=== PATIENT | male | born 1995 ===

== ENCOUNTER 2017-08-12 16:58 | Inpatient (IN) | payer OTHER ==
[~2017-08-12] VITALS: Ht 182.9 cm; Wt 98.3 kg
[2017-08-12] MEDS ORDERED: ALBUT/IPRATROP 3MG/0.5MG NEB 3 ML VIAL INH STA (17:29)
[2017-08-12] MEDS ORDERED: ACETAMINOPHEN 500 MG TAB PO STA (17:29)
[2017-08-12] MEDS ORDERED: KETOROLAC TROMETHAMINE 30 MG/ML VIAL IV STA (17:29)
[2017-08-12] MEDS ORDERED: SODIUM CHLORIDE 0.9% 1000ML 1,000 ML IV STA (17:29)
[2017-08-12] MEDS ORDERED: PIPERACILLIN/TAZOBACTAM 4.5 GM/100ML D5W IV STA (17:35)
[2017-08-12] MEDS ORDERED: VANCOMYCIN INJ 2,000 MG in SODIUM CHLORIDE 0.9% 500ML 500 ML IV STA (17:37)
[2017-08-12] MEDS ORDERED: OPTIRAY 320 IV PRN (17:45)
--- NOTE | 2017-08-12 18:04 | EMERGENCY ROOM VISIT NOTE ---
History Report prepared by Domingo: Alphonse Madison Under the Supervision of: Dr. Satya Da Silva D.O. First contact with patient: 17:25 Chief Complaint: RESPIRATORY PROBLEMS Stated Complaint: BREATHING PAIN History of Present Illness The patient is a 22 year old male who presents to the Emergency Room with complaints of constant dyspnea that started yesterday. He rates his pain as a 5/ 10 in severity. The patient reports that his symptoms are worsened with laying down, breathing, and coughing. He admits that he has been ill for two weeks and has been coughing and experiencing abdominal pain. The patient states that he woke up yesterday with pain radiating from his chest to his shoulder and back. He reports that he waited a day and made an appointment with a doctor. The patient states that the doctor told him that it may be pneumonia or a blood clot and told him to report to the ED. He admits to a history of a kidney stone that occurred a year ago. 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 He admits that he is not originally from the [facility] and is from [place]. The patient states that his last visit to [place] was last summer. He denies any fevers, nausea, vomiting, swelling or pain in his legs, sick contact, night sweats, coughing up blood, a history of a blood clot, taking medication, tobacco use, and medication allergies. Source of History: patient Onset: yesterday Position: other (global) Symptom Intensity: 5/10 Quality: other (global) Timing: constant Modifying Factors (Worsening): breathing, other (coughing, laying down) Associated Symptoms: + cough, + abdominal pain, No fevers, No chills, No nausea, No vomiting Review of Systems See HPI for pertinent positives & negatives. A total of 10 systems reviewed and were otherwise negative. Past Medical & Surgical Medical Problems: (1) Left pleuritic pain Family History Patient reports no known family medical history. Social History Smoking Status: Never Smoker Alcohol Use: occasionally Housing Status: lives with roommate Occupation Status: [employer] student Current/Historical Medications No Active Prescriptions or Reported Meds Allergies Coded Allergies: No Known Allergies (Unverified , 08/12/17) Physical Exam Vital Signs Date Time Temp Pulse Resp B/P (MAP) Pulse Ox O2 Delivery O2 Flow Rate FiO2 08/12/17 18:30 109 25 128/74 99 Room Air 08/12/17 18:30 99 Room Air 08/12/17 18:30 99 Room Air 08/12/17 18:30 99 Room Air 08/12/17 17:04 37.6 91 18 126/78 97 Room Air Physical Exam GENERAL: Patient is awake, alert, and in no acute distress. Patient is resting comfortably and showing no signs of anxiety EYES: The conjunctivae are clear. The pupils are round and reactive. EARS, NOSE, MOUTH AND THROAT: The nose is without any evidence of any deformity. Mucous membranes are moist tongue is midline NECK: The neck is nontender and supple. RESPIRATORY: Splinting respiration noted. Diminished breath sounds at left hemithorax and absent breath sounds at base. Rales in the upper left lung field. Mild tachypnea noted but no dyspnea with conversation. CARDIOVASCULAR: Tachycardic with a murmur noted. No deficits noted. GASTROINTESTINAL: Tenderness in right upper quadrant. No guarding or rigidity. PELVIS: The Pelvis is stable. No tenderness to palpation is noted. BACK: No midline tenderness or or step-off noted range of motion in flexion extension as well as rotation no signs of muscle spasm noted MUSCULOSKELETAL/EXTREMITIES: There is no evidence of gross deformity full range of motion is noted in the hips and shoulders SKIN: There is no obvious evidence of any rash. There are no petechiae, pallor or cyanosis noted. NEUROLOGIC: Patient is awake alert and oriented x3 strength is symmetric patellar reflexes are 2+ bilaterally Medical Decision & Procedures ER Provider Diagnostic Interpretation: X-ray results as stated below per interpretation by me and the radiologist. CT ANGIOGRAPHY OF THE CHEST, PULMONARY EMBOLUS PROTOCOL CLINICAL HISTORY: Respiratory distress. COMPARISON STUDY: No previous studies for comparison. TECHNIQUE: Following IV administration of 97 mL of Optiray-320, helical axial images of the chest were obtained utilizing the pulmonary embolus protocol. Maximal intensity projections and sagittal and coronal reformats were viewed on an independent 3D workstation. IV contrast was administered without complication. A dose lowering technique was utilized adhering to the principles of ALARA. CT DOSE: 496.35 mGy.cm FINDINGS: No central or lobar pulmonary emboli are identified. The segmental and subsegmental pulmonary arteries are suboptimally assessed due to respiratory motion. There is no pneumothorax. There is a small left pleural effusion. Multifocal consolidation within the left lung is noted, including a 4.6 x 3.6 cm focus of consolidation within the left lower lobe. There is possible early cavitation within this area of consolidation. Minimal airspace opacity within the right lower and right middle lobes is noted. Central airways are patent. Bony thorax and upper abdomen are unremarkable. Size the heart is normal. There is no thoracic aortic dissection. No enlarged thoracic lymph nodes are present. IMPRESSION: 1. No central or lobar pulmonary emboli identified. Segmental and subsegmental pulmonary arteries suboptimally assessed due to respiratory motion. 2. Multifocal airspace opacities within the bilateral lower lobes, lingula and right middle lobe, including a 4.6 x 3.6 cm focus of consolidation within the left lower lobe with possible early cavitation. The findings suggest multifocal pneumonia. Tuberculosis or a vasculitis are considered unlikely but would be difficult to exclude based on this study. 3. Small left pleural effusion. Electronically signed by: Momo Kaur M.D. 08/12/2017 7:59 PM Dictated Date/Time: 08/12/2017 7:44 PM Laboratory Results 08/12/17 18:00 Red Blood Count 5.25, Mean Corpuscular Volume 81.3, Mean Corpuscular Hemoglobin 27.2, Mean Corpuscular Hemoglobin Concent 33.5, Mean Platelet Volume 9.1, Neutrophils (%) (Auto) 74.2, Lymphocytes (%) (Auto) 18.0, Monocytes (%) (Auto) 6.8, Eosinophils (%) (Auto) 0.4, Basophils (%) (Auto) 0.1, Neutrophils # (Auto) 9.40, Lymphocytes # (Auto) 2.28, Monocytes # (Auto) 0.86, Eosinophils # (Auto) 0.05, Basophils # (Auto) 0.01 08/12/17 18:00 Test 08/12/17 18:00 08/12/17 18:09 08/12/17 18:14 08/12/17 18:16 White Blood Count 12.66 K/uL (4.8-10.8) Red Blood Count 5.25 M/uL (4.7-6.1) Hemoglobin 14.3 g/dL (14.0-18.0) Hematocrit 42.7 % (42-52) Mean Corpuscular Volume 81.3 fL (80-100) Mean Corpuscular Hemoglobin 27.2 pg (25-34) Mean Corpuscular Hemoglobin Concent 33.5 g/dl (32-36) Platelet Count 365 K/uL (130-400) Mean Platelet Volume 9.1 fL (7.4-10.4) Neutrophils (%) (Auto) 74.2 % Lymphocytes (%) (Auto) 18.0 % Monocytes (%) (Auto) 6.8 % Eosinophils (%) (Auto) 0.4 % Basophils (%) (Auto) 0.1 % Neutrophils # (Auto) 9.40 K/uL (1.4-6.5) Lymphocytes # (Auto) 2.28 K/uL (1.2-3.4) Monocytes # (Auto) 0.86 K/uL (0.11-0.59) Eosinophils # (Auto) 0.05 K/uL (0-0.5) Basophils # (Auto) 0.01 K/uL (0-0.2) RDW Standard Deviation 39.6 fL (36.4-46.3) RDW Coefficient of Variation 13.3 % (11.5-14.5) Immature Granulocyte % (Auto) 0.5 % Immature Granulocyte # (Auto) 0.06 K/uL (0.00-0.02) Erythrocyte Sedimentation Rate 76 mm/hr (0-14) Prothrombin Time 11.0 SECONDS (9.0-12.0) Prothromb Time International Ratio 1.0 (0.9-1.1) Activated Partial Thromboplast Time 29.8 SECONDS (21.0-31.0) Partial Thromboplastin Ratio 1.1 Est Creatinine Clear Calc Drug Dose 156.0 ml/min Estimated GFR () 139.1 Estimated GFR (Non- 120.0 BUN/Creatinine Ratio 12.6 (10-20) Calcium Level 9.9 mg/dl (8.5-10.1) Total Bilirubin 0.5 mg/dl (0.2-1) Aspartate Amino Transf (AST/SGOT) 16 U/L (15-37) Alanine Aminotransferase (ALT/SGPT) 36 U/L (12-78) Alkaline Phosphatase 92 U/L (45-117) Troponin I < 0.015 ng/ml (0-0.045) C-Reactive Protein 10.20 mg/dl (0-0.29) Total Protein 9.1 gm/dl (6.4-8.2) Albumin 3.7 gm/dl (3.4-5.0) Globulin 5.4 gm/dl (2.5-4.0) Albumin/Globulin Ratio 0.7 (0.9-2) Bedside Hemoglobin 15.6 g/dl (14.0-18.0) Bedside Hematocrit 46 % (42-52) Bedside Sodium 138 mEq/L (135-144) Bedside Potassium 4.0 mEq/L (3.3-5.0) Bedside Chloride 98 mEq/L (101-112) Bedside Total CO2 28 mEq/l (24-31) Anion Gap 17.0 mmol/L (16-25) Bedside Blood Urea Nitrogen 12 mg/dl (7-18) Bedside Creatinine 0.9 mg/dl (0.6-1.3) Bedside Glucose (other) 94 mg/dl (70-99) Bedside Ionized Calcium (Mariam) 1.23 mmol/l (1.12-1.32) Bedside Lactic Acid Venous 0.76 mmol/L (0.90-1.70) Laboratory results per my review. Medications Administered Medications (Trade) Dose Ordered Sig/Concepcion Route Start Time Stop Time Status Last Admin Dose Admin Acetaminophen (Tylenol Tab) 1,000 mg NOW STAT PO 08/12/17 17:29 08/12/17 17:31 DC 08/12/17 18:41 1,000 MG Sodium Chloride 1,000 ml @ 999 mls/hr Q1H1M STAT IV 08/12/17 17:29 08/12/17 18:29 DC 08/12/17 18:43 999 MLS/HR Ketorolac Tromethamine (Toradol Inj) 30 mg NOW STAT IV 08/12/17 17:29 08/12/17 17:31 DC 08/12/17 18:41 30 MG Albuterol/ Ipratropium (Duoneb) 3 ml NOW STAT INH 08/12/17 17:29 08/12/17 17:31 DC 08/12/17 17:29 3 ML Piperacillin Sod/ Tazobactam Sod (Zosyn Iv) 4.5 gm NOW STAT IV 08/12/17 17:35 08/12/17 17:36 DC 08/12/17 18:43 4.5 GM Vancomycin HCl 2000 mg/Sodium Chloride 540 ml @ 200 mls/hr ONE STAT IV 08/12/17 17:37 08/12/17 20:18 DC 08/12/17 18:43 200 MLS/HR ECG Indication: chest pain Rate (beats per minute): 95 Rhythm: normal sinus Findings: no ectopy, other (No acute ST segments) Comparison ECG Date: no prior available ED Course 1725: The patient was evaluated in room A02. A complete history and physical examination were performed. 1729: Ordered Duoneb 3 ml INH, Toradol Injection 30 mg IV, Sodium Chloride 1000 ml @ 999 mls/hr IV, Tylenol Tab 1000 mg PO. 1735: Ordered Zosyn 4.5 gm IV. 1737: Ordered Vancomycin HCl 2000 mg/ Sodium Chloride 540 ml @ 200 mls/hr IV. 1748: I discussed the patients case with Dr. Szymanski, [facility] Hospitalist. He understands the patients condition and agrees to accept the patient. Medical Decision Prior records/ancillary studies reviewed. Triage Nursing notes reviewed. Additional history obtained from the patient. The patient's history was concerning for respiratory difficulties. Differential diagnosis: Etiologies such as infections, reactive airway disease, pneumonia, pneumothorax , COPD, CHF, cardiac ischemia, pulmonary embolism, musculoskeletal, gastrointestinal, as well as others were entertained. 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 The patient was seen at [facility] prior to coming to the emergency department and he was sent to the emergency department because of an abnormal chest x-ray and an elevated d- dimer. The patient was found have very abnormal chest x-ray and was placed in respiratory isolation prior to any further studies after my initial evaluation. The patient did not have hemoptysis or weight loss and had no exposure to tuberculosis that he could remember however he was found have a cavitary lesion on chest x-ray and this was confirmed on CT of the chest. Initially he was treated with Zosyn and vancomycin. I discussed the patient's laboratory and radiographic studies with him. I also [facility] They've agreed to evaluate the patient in the emergency department for further management and disposition. The patient was also treated with IV fluids. He was reevaluated multiple times. Medication Reconcilliation Current Medication List: was personally reviewed by me Blood Pressure Screening Patient's blood pressure: Elevated blood pressure Blood pressure disposition: Elevated BP felt to be situational Consults Time Called: 174 Consulting Physician: Dr. Szymanski [facility] Hospitalist Returned Call: [phone] I discussed the patients case with Dr. Szymanski [facility] Hospitalist. He understands the patients condition and agress to accept the patient. Impression Primary Impression: Cavitary pneumonia Additional Impression: Chest pain Scribe Attestation The scribe's documentation has been prepared under my direction and personally reviewed by me in its entirety. I confirm that the note above accurately reflects all work, treatment, procedures, and medical decision making performed by me. Departure Information Dispostion Being Evaluated By Hospitalist Prescriptions No Active Prescriptions or Reported Meds Referrals No Doctor, Assigned (PCP) Patient Instructions My [facility] Problem Qualifiers Additional Impression: Chest pain Chest pain type: unspecified Qualified Codes: R07.9 - Chest pain, unspecified
[2017-08-12 18:21] LABS: BASO % 0.1 %; BASO ABS # 0.01 K/uL (0-0.2); COMPLETE YES; EOS % 0.4 %; HEMATOCRIT 42.7 % (42-52); IG% 0.5 %; LYMPH ABS # 2.28 K/uL (1.2-3.4); MEAN CELL VOLUME 81.3 fL (80-100); MEAN CORPUSCULAR HEMOGLOBIN 27.2 pg (25-34); MEAN CORPUSCULAR HGB CONC 33.5 g/dl (32-36); MEAN PLATELET VOLUME 9.1 fL (7.4-10.4); MONO % 6.8 %; NEUT % 74.2 %; PLATELET COUNT 365 K/uL (130-400); RED BLOOD COUNT 5.25 M/uL (4.7-6.1); WHITE BLOOD COUNT 12.66 K/uL (4.8-10.8)
[2017-08-12 18:27] LABS: ISTAT CREATININE 0.9 mg/dl (0.6-1.3); ISTAT HEMOGLOBIN 15.6 g/dl (14.0-18.0); ISTAT IONIZED CALCIUM 1.23 mmol/l (1.12-1.32)
[2017-08-12] MEDS ORDERED: ONDANSETRON INJ 2 MG/ML 2 ML VIAL IV PRN (18:30)
[2017-08-12] MEDS ORDERED: ACETAMINOPHEN 325 MG TAB PO PRN (18:30)
[2017-08-12] MEDS ORDERED: POLYETHYLENE (MIRALAX) 17 GM PACK PO PRN (18:30)
[2017-08-12 18:32] LABS: PARTIAL THROMBOPLASTIN RATIO 1.1
--- NOTE | 2017-08-12 18:34 | History and Physical ---
History & Physical Date & Time of Service: Aug 12, 2017 at 18:19 Chief Complaint: Breathing Pain Primary Care Physician: Services,[facility] History of Present Illness Source: patient This is a 22 yo M with limited with PMHx including asthma as a child, hx of nasal polypectomy at very young age, and previous kidney stone. 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 The patient presents with pleuritic pain on the left side x 1 day. Pt awoke yesterday morning with acute left sided pleuritic pain, specifically worse with deep breaths and an occasional cough. He waited 1 day to see a doctor at [facility], but was then told to go to the ER. He denies fever, chills or sweats. Pt admits to feeling short of breath if he is required to talk for an extended period of time. He is winded more easily with walking long distances compared to normal. Pt denies chest palpitations, flutter, headache. He reports having an upper respiratory infection for 3-4 days last week with nasal congestion, sinus drainage and cough but this had resolved around Wednesday. He resides with 3 room mates but does not share bedroom with any.He denies any exposure to sick contacts or known tuberculosis but presents with respiratory distress. He denies environmental exposure to fumes or smoke. Pt notes he typically drinks vodka once a week in single shot form. He denies smoking of any kind or illicit drug use. ESR is elevated at [address] chest in process A quantiferon gold test is in process Past Medical/Surgical History Childhood asthma Surgical Hx: Nasal polypectomy Family History Mother: no known medical hx Father: no known medical hx Social History Smoking Status: Never Smoker Occupational Status: [employer] Multi-Drug Resistant Organisms History of MDRO: No Allergies Coded Allergies: No Known Allergies (Unverified , 08/12/17) Home Medications No Active Prescriptions or Reported Meds Review of Systems Constitutional: + fatigue, No fever, No chills, No sweats Eyes: No redness, No diplopia, No problem reported ENT: No nasal symptoms, No sore throat, No tinnitus Respiratory: + cough, + sputum, + dyspnea on exertion, No wheezing, No hemoptysis Cardiovascular: No chest pain, No edema, No palpitations Abdomen: No pain, No nausea, No vomiting, No diarrhea Musculoskeletal: No joint pain, No swelling, No calf pain Genitourinary - Male: No hematuria, No dysuria Neurologic: No numbness/tingling Psychiatric: No depression symptoms, No anxiety Endocrine: No fatigue Integumentary: No rash, No itch Physical Exam Vital Signs Date Time Temp Pulse Resp B/P (MAP) Pulse Ox O2 Delivery O2 Flow Rate FiO2 08/12/17 17:04 37.6 91 18 126/78 97 Room Air General Appearance: WD/WN, no apparent distress Head: normocephalic, atraumatic Eyes: PERRL, EOMI ENT: hearing grossly normal, pharynx normal Neck: supple, no JVD Respiratory/Chest: + pertinent finding (Diminished breath sounds in BERTO with faint crackles, +absent breath sounds in LLL. Right side with diminished breath sounds but no crackles or wheeze. Pt has difficulty with deep breaths, on room air with adequate saturations.) Cardiovascular: regular rate, rhythm, no murmur, normal peripheral pulses, + tachycardia Abdomen/GI: normal bowel sounds, non tender, soft, + pertinent finding (+ pain with palpation in the LUQ due to referred pressure in chest) Back: no CVA tenderness Extremities/Musculoskelatal: no calf tenderness, no pedal edema Neurologic/Psych: alert, normal reflexes, oriented x 3 Skin: normal color, warm/dry Diagnostics Laboratory Results Results Past 24 Hours Test 08/12/17 17:49 08/12/17 18:00 Range/Units Microbiology Results 08/12/17 Blood Culture, Ordered Pending 08/12/17 Blood Culture, Ordered Pending Impression Assessment and Plan This is a 22 yo M with limited with PMHx including asthma as a child, hx of nasal polypectomy at very young age, and previous kidney stone. 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 The patient presents with pleuritic pain on the left side x 1 day. Pt awoke yesterday morning with acute left sided pleuritic pain, specifically worse with deep breaths and an occasional cough. Left sided pleuritic chest pain - Admitted to tele - CT of the chest ordered- follow - Possible needs for thoracentesis if abscess or empyema - Started on vanc and zosyn in the ER - continue to cover for staph process with recent URI last week and possible pneumonia. - Environmental exposure possible for TB - quantiferon gold in process - maintain negative pressure room with droplet precautions - Analgesia with toradol and tylenol - Low grade temp with Tmax 37.6 - continue tylenol. - Follow blood cultures - Sputum culture DVT ppx: ambulatory, scds, no chemical anticoagulation in case of possible needs for thoracentesis CODE STATUS: FULL CODE Disposition: Discharge possible in 1-2 days. Resident Physician Supervision Note: I was present with the PA during the history and exam. I discussed the PA with the resident and agree with the findings and plan as documented in the note. Any exceptions or clarifications are listed here: 22 y/o M - no significant Hx - URI one week prior Presenting with L pleuritic CP - large abscess seen on CT chest AAO x 3 reduced air on L - no crackles S1,2 R NT, ND NO CCE P: Placed on Zosyn and Vanc as may be post-viral May need drainage or Bx Will place on isolation as TB a remote possibility - cavitation seen in abscess Pt stable at time of admission Documented By: Juanjo Szymanski Level of Care Telemetry Advanced Directives Existing Advance Directive: No Existing Living Will: No Existing Power of Speech And Language Specialist: No Existing Health Care Proxy: No Resuscitation Status FULL RESUSCITATION
[2017-08-12 18:46] LABS: ALT/SGPT 36 U/L (12-78); BLOOD UREA NITROGEN 12 mg/dl (7-18); BUN/CREATININE RATIO 12.6 (10-20); CALCIUM 9.9 mg/dl (8.5-10.1); CARBON DIOXIDE 29 mmol/L (21-32); CHLORIDE 100 mmol/L (98-107); CREATININE 0.91 mg/dl (0.60-1.40); GLUCOSE 91 mg/dl (70-99); POTASSIUM 3.8 mmol/L (3.5-5.1); SODIUM 135 mmol/L (136-145)
[2017-08-12 18:50] LABS: ALB/GLOB RATIO 0.7 (0.9-2); ALKALINE PHOSPHATASE 92 U/L (45-117); AST/SGOT 16 U/L (15-37)
[2017-08-12] MEDS ORDERED: KETOROLAC TROMETHAMINE 30 MG/ML VIAL IV PRN (19:00)
--- NOTE | 2017-08-12 20:00 | DIAGNOSTIC IMAGING REPORT ---
CT ANGIOGRAPHY OF THE CHEST, PULMONARY EMBOLUS PROTOCOL CLINICAL HISTORY: Respiratory distress. COMPARISON STUDY: No previous studies for comparison. TECHNIQUE: Following IV administration of 97 mL of Optiray-320, helical axial images of the chest were obtained utilizing the pulmonary embolus protocol. Maximal intensity projections and sagittal and coronal reformats were viewed on an independent 3D workstation. IV contrast was administered without complication. A dose lowering technique was utilized adhering to the principles of ALARA. CT DOSE: 496.35 mGy.cm FINDINGS: No central or lobar pulmonary emboli are identified. The segmental and subsegmental pulmonary arteries are suboptimally assessed due to respiratory motion. There is no pneumothorax. There is a small left pleural effusion. Multifocal consolidation within the left lung is noted, including a 4.6 x 3.6 cm focus of consolidation within the left lower lobe. There is possible early cavitation within this area of consolidation. Minimal airspace opacity within the right lower and right middle lobes is noted. Central airways are patent. Bony thorax and upper abdomen are unremarkable. Size the heart is normal. There is no thoracic aortic dissection. No enlarged thoracic lymph nodes are present. IMPRESSION: 1. No central or lobar pulmonary emboli identified. Segmental and subsegmental pulmonary arteries suboptimally assessed due to respiratory motion. 2. Multifocal airspace opacities within the bilateral lower lobes, lingula and right middle lobe, including a 4.6 x 3.6 cm focus of consolidation within the left lower lobe with possible early cavitation. The findings suggest multifocal pneumonia. Tuberculosis or a vasculitis are considered unlikely but would be difficult to exclude based on this study. 3. Small left pleural effusion. Electronically signed by: Momo Kaur M.D. 08/12/2017 7:59 PM Dictated Date/Time: 08/12/2017 7:44 PM
[2017-08-12 20:30] VITALS: BP 133/78; PULSE 98; TEMP 36.4; O2SAT 98
[2017-08-12] MEDS ORDERED: VANCOMYCIN CONSULT ACTIVE PRN (20:45)
[2017-08-12] MEDS ORDERED: PIPERACILL/TAZOBAC CONSULT ACTIVE PRN (20:45)
[2017-08-12] MEDS ORDERED: TUBERCULIN SKIN TEST 5 TU in SYRINGE 0 ML ID SCH (21:00)
--- NOTE | 2017-08-12 21:43 | Pharmacy Progress Note ---
Pharmacy Antibiotic Consult Date of Service: Aug 12, 2017. Pharmacy Dosing Scope Pharmacy is consulted to initiate vancomycin and Zosyn IV dosing therapy, order appropriate labs and adjust drug dose/frequency. Subjective The patient is a 22 year old male admitted on Aug 12, 2017 at 18:31. The patient presents with pleuritic pain on the left side x 1 day. Pt awoke yesterday morning with acute left sided pleuritic pain, specifically worse with deep breaths and an occasional cough. 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 CT of chest indicates PNX/chest abscess. Objective Height (Feet): 6 Height (Inches): 0 Weight (Kilograms): 98.30 Lab Results (24hrs): Test 08/12/17 18:00 08/12/17 18:09 08/12/17 18:14 08/12/17 18:16 White Blood Count 12.66 K/uL (4.8-10.8) Red Blood Count 5.25 M/uL (4.7-6.1) Hemoglobin 14.3 g/dL (14.0-18.0) Hematocrit 42.7 % (42-52) Mean Corpuscular Volume 81.3 fL (80-100) Mean Corpuscular Hemoglobin 27.2 pg (25-34) Mean Corpuscular Hemoglobin Concent 33.5 g/dl (32-36) Platelet Count 365 K/uL (130-400) Mean Platelet Volume 9.1 fL (7.4-10.4) Neutrophils (%) (Auto) 74.2 % Lymphocytes (%) (Auto) 18.0 % Monocytes (%) (Auto) 6.8 % Eosinophils (%) (Auto) 0.4 % Basophils (%) (Auto) 0.1 % Neutrophils # (Auto) 9.40 K/uL (1.4-6.5) Lymphocytes # (Auto) 2.28 K/uL (1.2-3.4) Monocytes # (Auto) 0.86 K/uL (0.11-0.59) Eosinophils # (Auto) 0.05 K/uL (0-0.5) Basophils # (Auto) 0.01 K/uL (0-0.2) RDW Standard Deviation 39.6 fL (36.4-46.3) RDW Coefficient of Variation 13.3 % (11.5-14.5) Immature Granulocyte % (Auto) 0.5 % Immature Granulocyte # (Auto) 0.06 K/uL (0.00-0.02) Erythrocyte Sedimentation Rate 76 mm/hr (0-14) Prothrombin Time 11.0 SECONDS (9.0-12.0) Prothromb Time International Ratio 1.0 (0.9-1.1) Activated Partial Thromboplast Time 29.8 SECONDS (21.0-31.0) Partial Thromboplastin Ratio 1.1 Sodium Level 135 mmol/L (136-145) Potassium Level 3.8 mmol/L (3.5-5.1) Chloride Level 100 mmol/L (98-107) Carbon Dioxide Level 29 mmol/L (21-32) Anion Gap 6.0 mmol/L (3-11) 17.0 mmol/L (16-25) Blood Urea Nitrogen 12 mg/dl (7-18) Creatinine 0.91 mg/dl (0.60-1.40) Est Creatinine Clear Calc Drug Dose 156.0 ml/min Estimated GFR () 139.1 Estimated GFR (Non- 120.0 BUN/Creatinine Ratio 12.6 (10-20) Random Glucose 91 mg/dl (70-99) Calcium Level 9.9 mg/dl (8.5-10.1) Total Bilirubin 0.5 mg/dl (0.2-1) Aspartate Amino Transf (AST/SGOT) 16 U/L (15-37) Alanine Aminotransferase (ALT/SGPT) 36 U/L (12-78) Alkaline Phosphatase 92 U/L (45-117) Troponin I < 0.015 ng/ml (0-0.045) C-Reactive Protein 10.20 mg/dl (0-0.29) Total Protein 9.1 gm/dl (6.4-8.2) Albumin 3.7 gm/dl (3.4-5.0) Globulin 5.4 gm/dl (2.5-4.0) Albumin/Globulin Ratio 0.7 (0.9-2) Bedside Hemoglobin 15.6 g/dl (14.0-18.0) Bedside Hematocrit 46 % (42-52) Bedside Sodium 138 mEq/L (135-144) Bedside Potassium 4.0 mEq/L (3.3-5.0) Bedside Chloride 98 mEq/L (101-112) Bedside Total CO2 28 mEq/l (24-31) Bedside Blood Urea Nitrogen 12 mg/dl (7-18) Bedside Creatinine 0.9 mg/dl (0.6-1.3) Bedside Glucose (other) 94 mg/dl (70-99) Bedside Ionized Calcium (Mariam) 1.23 mmol/l (1.12-1.32) Bedside Lactic Acid Venous 0.76 mmol/L (0.90-1.70) Micro Results: BC's x 2 are pending Assessment & Plan Vancomycin: Loading dose given in ER: 2000mg (20 mg/kg) IV X 1 dose then: 1750 mg IV every 8 hours. Goal trough level estimate: between 15 - 20 mcg/mL. Peak and trough or random level has been ordered for: 10-20 prior to 1800 dose. Zosyn 4.5gm over 30 min given in ER, then 4.5gm IV q8h extended infusion for CrCl > 20ml/min. Pharmacy will continue to follow and will adjust dose/frequency as necessary. Thank you
[2017-08-12 22:13] VITALS: BP 133/78; PULSE 98; TEMP 36.4; Ht 182.9 cm; Wt 98.3 kg
[2017-08-12 23:28] LABS: URINE APPEARANCE CLEAR (CLEAR); URINE BILIRUBIN NEG (NEG); URINE COLOR YELLOW; URINE EPITHELIAL CELL AUTO 0-5 /lpf (0-5); URINE NITRITE NEG (NEG); URINE SPECIFIC GRAVITY > 1.045 (1.000-1.030); UROBILINOGEN NEG (NEG)
[2017-08-12 23:29] LABS: MANUAL MICROSCOPIC REQUIRED? NO; REVIEW REQ? NO
[2017-08-12] MEDS: PIPERACILL/TAZOBAC IV 4.5 GM in DEXTROSE 5% 100ML 100 ML IV SCH (23:53)
[2017-08-13] VITALS (8 sets, daily range): BP systolic 117–121; BP diastolic 66–75; PULSE 84–116; TEMP 36.7–37.4; O2SAT 92–100
[2017-08-13] MEDS: VANCOMYCIN INJ 1,750 MG in SODIUM CHLORIDE 0.9% 500ML 500 ML IV SCH ×3 (01:35→18:18)
[2017-08-13] MEDS: PIPERACILL/TAZOBAC IV 4.5 GM in DEXTROSE 5% 100ML 100 ML IV SCH ×3 (07:58→23:27)
[2017-08-13] MEDS: ALBUT/IPRATROP 3MG/0.5MG NEB 3 ML VIAL INH SCH ×4 (09:43→23:17)
--- NOTE | 2017-08-13 12:02 | Hospitalist Progress Note ---
Hospitalist Progress Note Date of Service Aug 13, 2017. Subjective Pt evaluation today including: conversation w/ patient, physical exam, chart review, lab review, review of studies, review of inpatient medication list Patient seen and evaluated. No acute events overnight. Continues to have pleuritic CP largely in L chest. Feels like it is heavy to breath but slightly improved from yesterday. Thinks he may have had a TB vaccine as a child but cannot confirm. Reports having PPDs in the past that were negative. He is adequately oxygenation without supplemental O2 and reports that he is coughing but nothing is coming up and limits this due to chest pain. Constitutional: No fever, No chills Respiratory: + cough, + shortness of breath, No sputum, No wheezing, No hemoptysis Cardiovascular: + chest pain (pleuritic), No palpitations Abdomen: No pain, No nausea, No vomiting, No diarrhea, No constipation Musculoskeletal: No swelling, No calf pain Male : No dysuria Skin: No rash Medications Current Inpatient Medications Medications (Trade) Dose Ordered Sig/Concepcion Route Start Time Stop Time Status Last Admin Dose Admin Ioversol (Optiray 320) 111 ml UD PRN IV 08/12/17 17:45 08/16/17 17:44 Acetaminophen (Tylenol Tab) 650 mg Q4H PRN PO 08/12/17 18:30 09/11/17 18:29 Polyethylene (Miralax Powder Packet) 17 gm DAILY PRN PO 08/12/17 18:30 09/11/17 18:29 Ondansetron HCl (Zofran Inj) 4 mg Q6H PRN IV 08/12/17 18:30 09/11/17 18:29 Vancomycin HCl 1750 mg/Sodium Chloride 535 ml @ 200 mls/hr Q8H IV 08/13/17 02:00 08/20/17 01:59 08/13/17 11:13 200 MLS/HR Piperacillin Sod/ Tazobactam Sod 4.5 gm/Dextrose 120 ml @ 30 mls/hr Q8H IV 08/13/17 00:00 08/20/17 00:00 08/13/17 07:58 30 MLS/HR Miscellaneous (Ppd Check) 1 ea Q48H ONCE N/A 08/14/17 21:00 08/14/17 21:01 Ketorolac Tromethamine (Toradol Inj) 30 mg Q6H PRN IV 08/12/17 19:00 08/17/17 18:59 Vancomycin HCl (Consult) 1 ea UD PRN N/A 08/12/17 20:45 09/11/17 20:44 Piperacillin Sod/ Tazobactam Sod (Consult) 1 ea UD PRN N/A 08/12/17 20:45 09/11/17 20:44 Albuterol/ Ipratropium (Duoneb) 3 ml Q4R INH 08/13/17 12:00 09/12/17 11:59 08/13/17 09:43 3 ML Objective Vital Signs Date Time Temp Pulse Resp B/P (MAP) Pulse Ox O2 Delivery O2 Flow Rate FiO2 08/13/17 11:20 Room Air 08/13/17 09:45 100 16 95 Room Air 08/13/17 07:31 37.4 98 22 117/74 (88) 96 Room Air 08/13/17 00:14 36.8 84 20 118/75 (89) 97 Room Air 08/13/17 00:00 Room Air 08/12/17 22:13 36.4 98 20 133/78 Room Air 08/12/17 20:30 36.4 98 20 133/78 (96) 98 Room Air 08/12/17 19:36 104 21 145/82 95 08/12/17 19:00 104 145/82 95 Room Air 08/12/17 18:37 106 08/12/17 18:30 109 25 128/74 99 Room Air 08/12/17 18:30 99 Room Air 08/12/17 18:30 99 Room Air 08/12/17 18:30 99 Room Air 08/12/17 17:04 37.6 91 18 126/78 97 Room Air Physical Exam General Appearance: WD/WN, no apparent distress Eyes: sclerae normal ENT: hearing grossly normal Neck: supple, no JVD, trachea midline Respiratory/Chest: no respiratory distress, no accessory muscle use, + pertinent finding (diminished breath sounds throughout with poor airflow; course ) Cardiovascular: regular rate, rhythm, no gallop, no murmur Abdomen: normal bowel sounds, non tender, soft Extremities: no pedal edema, no calf tenderness Neurologic/Psychiatric: alert, oriented x 3 Skin: normal color, warm/dry Laboratory Results Last 24 Hours Test 08/12/17 18:00 08/12/17 18:09 08/12/17 18:14 08/12/17 18:16 White Blood Count 12.66 K/uL Red Blood Count 5.25 M/uL Hemoglobin 14.3 g/dL Hematocrit 42.7 % Mean Corpuscular Volume 81.3 fL Mean Corpuscular Hemoglobin 27.2 pg Mean Corpuscular Hemoglobin Concent 33.5 g/dl Platelet Count 365 K/uL Mean Platelet Volume 9.1 fL Neutrophils (%) (Auto) 74.2 % Lymphocytes (%) (Auto) 18.0 % Monocytes (%) (Auto) 6.8 % Eosinophils (%) (Auto) 0.4 % Basophils (%) (Auto) 0.1 % Neutrophils # (Auto) 9.40 K/uL Lymphocytes # (Auto) 2.28 K/uL Monocytes # (Auto) 0.86 K/uL Eosinophils # (Auto) 0.05 K/uL Basophils # (Auto) 0.01 K/uL RDW Standard Deviation 39.6 fL RDW Coefficient of Variation 13.3 % Immature Granulocyte % (Auto) 0.5 % Immature Granulocyte # (Auto) 0.06 K/uL Erythrocyte Sedimentation Rate 76 mm/hr Prothrombin Time 11.0 SECONDS Prothromb Time International Ratio 1.0 Activated Partial Thromboplast Time 29.8 SECONDS Partial Thromboplastin Ratio 1.1 Sodium Level 135 mmol/L Potassium Level 3.8 mmol/L Chloride Level 100 mmol/L Carbon Dioxide Level 29 mmol/L Anion Gap 6.0 mmol/L 17.0 mmol/L Blood Urea Nitrogen 12 mg/dl Creatinine 0.91 mg/dl Est Creatinine Clear Calc Drug Dose 156.0 ml/min Estimated GFR () 139.1 Estimated GFR (Non- 120.0 BUN/Creatinine Ratio 12.6 Random Glucose 91 mg/dl Calcium Level 9.9 mg/dl Total Bilirubin 0.5 mg/dl Aspartate Amino Transf (AST/SGOT) 16 U/L Alanine Aminotransferase (ALT/SGPT) 36 U/L Alkaline Phosphatase 92 U/L Troponin I < 0.015 ng/ml C-Reactive Protein 10.20 mg/dl Total Protein 9.1 gm/dl Albumin 3.7 gm/dl Globulin 5.4 gm/dl Albumin/Globulin Ratio 0.7 Bedside Hemoglobin 15.6 g/dl Bedside Hematocrit 46 % Bedside Sodium 138 mEq/L Bedside Potassium 4.0 mEq/L Bedside Chloride 98 mEq/L Bedside Total CO2 28 mEq/l Bedside Blood Urea Nitrogen 12 mg/dl Bedside Creatinine 0.9 mg/dl Bedside Glucose (other) 94 mg/dl Bedside Ionized Calcium (Mariam) 1.23 mmol/l Bedside Lactic Acid Venous 0.76 mmol/L Test 08/12/17 22:45 08/13/17 11:12 Urine Color YELLOW Urine Appearance CLEAR Urine pH 6.0 Urine Specific [place] > 1.045 Urine Protein TRACE Urine Glucose (UA) NEG Urine Ketones NEG Urine Occult Blood NEG Urine Nitrite NEG Urine Bilirubin NEG Urine Urobilinogen NEG Urine Leukocyte Esterase NEG Urine WBC (Auto) 1-5 /hpf Urine RBC (Auto) 0-4 /hpf Urine Hyaline Casts (Auto) 1-5 /lpf Urine Epithelial Cells (Auto) 0-5 /lpf Urine Bacteria (Auto) NEG Assessment and Plan Mr. Taylor is a 22 y/o with PMHx of asthma as a child and nasal polypectomy. He is a [employer] student from [facility] with multifocal consolidations L Pleuritic Chest Pain: - CT with multifocal consolidations and possible early cavitation - Had recent URI symptoms that resolved on Wednesday but developed this pleuritic CP - Zosyn and Vanc - Quantiferon gold pending and PPD without induration at this point - believes he may have had the TB vaccine as a child; has had previous PPDs that were negative - last travel outside of was to [facility] in May. -- TB low on differential - Pulmonary consultation - appreciate recommendations for need to further evaluate early cavitation and any recommendations Asthma: - Reports problems as a child but doesnt currently need inhalers - patient airflow was diminished -- May have a mild flair due to recent illness but no wheezing, resp distress , or supplemental O2 needs - [facility] - may benefit from rescue inhaler at D/C - consideration for possible re-evaluation of asthma Disposition: - Await pulmonary recommendations - D/C possible tomorrow with Abx with atypicals coverage - possible Levaquin + Doxy Continued [facility] stay due to: multiple IV medications needed Discharge planning: home
--- NOTE | 2017-08-13 15:25 | PULMONARY CONSULTATION ---
DATE OF CONSULTATION: 08/13/2017 DATE OF CONSULTATION: 08/13/2017 REASON FOR CONSULTATION: Bronchial pneumonia. 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 The patient has limited medical history stating he was treated for bronchial asthma as a child and underwent nasal polypectomy and has a previous history of nephrolithiasis. He has been in this country 3 years and speaks fluent [place]. He spent a month in [facility] this summer. He states he has never been treated or hospitalized for pneumonia, but has had asthma exacerbations. For at least 24-36 hours prior to admission he had left-sided pleuritic chest discomfort associated with increased dyspnea and a dry nonproductive cough. No hemoptysis was noted. He has not been losing weight. His appetite is only fair. He had URI symptoms for 3-4 days prior to admission with symptoms of nasal congestion and sinus drainage as well. He has 3 housemates, none of whom are ill. He thinks he received BCG vaccination as a child but has no known tuberculosis exposure. No occupational exposure. He denies intravenous drug use, occasionally smokes cigarette but denies marijuana utilization. He states once this summer he was inebriated, but has no memory of aspiration. A QuantiFERON Gold serology has been sent for but is pending. He was seen in the Emergency Room by Dr. Da Silva. A CAT scan of the chest done as an angiogram was performed on the day of admission, no central or lobar pulmonary emboli were identified. I could not assess for segmental emboli given the respiratory motion. There are areas of multifocal airspace opacities in both lower lobes as well as the lingula and right middle lobe with a large 4.6 x 3.6 area of consolidation within the left lower lobe at the level and just below the fissure. There may be some early cavitation or may simply be technique of the film with a small left pleural effusion also noted. White count was 12,600 on admission, H&H 14 and 42. There is a ponderance of polymorphonuclear leukocytes seen. No significant eosinophilia and leftward shift. Sed rate was 76. FOR DETAILS OF PAST MEDICAL HISTORY, MEDICATIONS, FAMILY AND SOCIAL HISTORY: I refer you to current and past record. PHYSICAL EXAMINATION: GENERAL: Reveals no friendly, well-developed [place] male in no respiratory distress. CURRENT VITAL SIGNS: Temperature 37.4, pulse 100 and regular, respiratory rate 16, O2 sat 95% on room air. SKIN: Some acneiform eruptions on posterior thorax. HEAD, EYES, EARS, NOSE, AND THROAT: Atraumatic, normocephalic, PERRLA, EOMI. Conjunctivae pink. Sclerae nonicteric. Fundi benign. Tympanic membranes within normal limits. Pharyngeal exam intact. Neck veins are not distended at 45 degrees. No lymphadenopathy in the supra- or infraclavicular areas. LUNGS: Some diminished breath sounds at the left base. No audible wheezes left base or left posterior lung field. CARDIAC: Regular rate and rhythm. I do not appreciate a gallop or murmur. No S3 audible. No rub. ABDOMEN: Soft, protuberant. No evidence of hepatosplenomegaly. EXTREMITIES: No pedal edema, clubbing or cyanosis. NEUROLOGIC: Intact. No lateralizing signs. No meningismus. LABORATORY DATA: CT angiogram and lab data pending. Blood cultures are pending. Sputum not able to produce any sputum for [employer]OR[employer] or acid fast bacilli. QuantiFERON Gold study pending. OVERALL ASSESSMENT: A 22-year-old [place] male with URI prodrome and onset of nonproductive cough, shortness breath and pleuritic pain who currently shows some clinical improvement. CAT scan of the chest is impressive and the left lower lobe area of consolidation may actually represent early abscess formation or cavitation. Certainly a staph pneumonia with viral prodrome can present like this. Hopefully, this is just a confluence of appearance on x-ray that would suggest early cavitation, but doubt that that is the case. I doubt we are dealing with lung abscess or tuberculosis prosthesis, but that is in the differential. The patient has been placed on IV vancomycin and IV Zosyn with are excellent antibiotics for what we probably will be dealing with. I would repeat his chest x-ray on Wednesday along with a CBC diff, sed rate, and watch his temperature curve. If he is clinically not improving then I would consider bronchoscopic evaluation on Wednesday a.m. Thank you very much for this consultation.
[2017-08-13] MEDS ORDERED: VANCOMYCIN TROUGH SCH (17:30)
--- NOTE | 2017-08-13 22:51 | Pharmacy Progress Note ---
Pharmacy Antibiotic Prog Note Date of Service Aug 13, 2017. Subjective The patient is currently receiving vancomycin 1750 mg iv q 8 hrs The patient is currently on day # 2 IV therapy. Objective Height (Feet): 6 Height (Inches): 0.00 Weight (Kilograms): 98.300 Levels: Item Value Date Time Vancomycin Level Trough 19.5 mcg/ml 08/13/17 8827 Lab Results (24hrs): Test 08/13/17 11:12 08/13/17 17:47 Vancomycin Level Trough 19.5 mcg/ml (SEE COMMENT) Assessment & Plan Vancomycin: * Trough this evening was therapeutic at ~19 mcg/ml (goal 15-20 mcg/ml) * Level however drawn before steady state, therefore actual trough probably slightly higher * Will decrease dose to vancomycin 1500 mg iv 8 hrs and plan on rechecking trough in another 2-3 days if continued Pharmacy will continue to follow and will adjust dose/frequency as necessary. Thank you
[2017-08-14] MEDS: VANCOMYCIN INJ 1,500 MG in SODIUM CHLORIDE 0.9% 500ML 500 ML IV SCH ×3 (01:48→18:24)
[2017-08-14] MEDS: ALBUT/IPRATROP 3MG/0.5MG NEB 3 ML VIAL INH SCH ×3 (02:53→11:07)
[2017-08-14 06:53] VITALS: PULSE 97; O2SAT 97
[2017-08-14 07:07] VITALS: BP 117/70; PULSE 97; TEMP 36.9; O2SAT 97
[2017-08-14 07:34] LABS: HEMATOCRIT 36.2 % (42-52); MEAN CELL VOLUME 81.5 fL (80-100); MEAN CORPUSCULAR HGB CONC 33.1 g/dl (32-36); MEAN PLATELET VOLUME 8.9 fL (7.4-10.4); PLATELET COUNT 336 K/uL (130-400); RED BLOOD COUNT 4.44 M/uL (4.7-6.1); WHITE BLOOD COUNT 10.55 K/uL (4.8-10.8)
[2017-08-14] MEDS: PIPERACILL/TAZOBAC IV 4.5 GM in DEXTROSE 5% 100ML 100 ML IV SCH ×2 (07:34→16:30)
[2017-08-14 08:02] LABS: BUN/CREATININE RATIO 11.3 (10-20); CALCIUM 9.3 mg/dl (8.5-10.1); CREATININE 0.8 mg/dl (0.60-1.40); POTASSIUM 3.4 mmol/L (3.5-5.1)
[2017-08-14] MEDS ORDERED: POTASSIUM CHLORIDE 10 MEQ TABCR PO STA (08:46)
[2017-08-14 11:08] VITALS: PULSE 87; O2SAT 97
--- NOTE | 2017-08-14 11:22 | PULMONARY PROGRESS NOTE ---
DATE: 08/14/2017 DATE: 08/14/2017 TIME: 11:05 a.m. SUBJECTIVE: The patient states his chest pain is less. He still has some but it is not as severe. He denies shortness of breath. He denies cough, sputum production or hemoptysis. He denies chills, fevers or sweats. OBJECTIVE: GENERAL: The patient appears comfortable. He was cooperative, alert and oriented. VITAL SIGNS: Maximum temperature since admission 37.4, current temperature 36.9. EARS, NOSE, THROAT: Unremarkable. HEART: Heart rate is 97 per minute. The rhythm is regular. Blood pressure 117/70. CHEST: Respiratory rate is 18 breaths per minute. The lung charles were clear bilaterally. The breath sounds were somewhat diminished. No wheezing was heard. LABORATORY DATA: White count today is 10.55. Hemoglobin is 12.0. Electrolytes today show sodium 141, potassium 3.4, chloride 106, bicarb 28. BUN was 9 with a creatinine of 0.8. IMPRESSION: Bilateral pneumonia. COMMENTS AND RECOMMENDATIONS: The patient is on vancomycin and Zosyn. Blood cultures are negative thus far. He does not seem to be short of breath. He is on treatments every 4 hours. I believe these could be decreased or just changed to p.r.n. Dr. Nicholson had suggested in his consultation and that he have a repeat x-ray on Wednesday along with a CBC and sed rate.
--- NOTE | 2017-08-14 13:34 | Progress Note ---
Subjective Date of Service: Aug 14, 2017. Subjective Pt evaluation today including: conversation w/ patient, physical exam, chart review, lab review, review of studies (Ct chest), review of inpatient medication list Pain: minimal pleuritic pain PO Intake: normal Voiding: no voiding problems patient denies HIV risk factors - in fact has never been sexually active no h/o IV drug use mild dyspnea on exertion only but none at rest cough is nonproductive denies recent travel no h/o +PPD mentions he had a URI about 1 week prior to getting sick with pneumonia Problem List Medical Problems: (1) Cavitary pneumonia Status: Acute (2) Chest pain Status: Acute Review of Systems Constitutional: + fatigue, No see HPI, No fever, No chills Respiratory: + cough, + dyspnea on exertion, No wheezing Cardiac: + see HPI, + chest pain Abdomen: No pain Objective Vital Signs Date Time Temp Pulse Resp B/P (MAP) Pulse Ox O2 Delivery O2 Flow Rate FiO2 08/14/17 11:08 87 16 97 Room Air 08/14/17 08:00 Room Air 08/14/17 07:07 36.9 97 18 117/70 (86) 97 08/14/17 06:53 97 16 97 Room Air 08/14/17 00:00 Room Air 08/13/17 23:24 36.7 114 20 118/67 (84) 97 Room Air 08/13/17 23:18 111 16 97 Room Air 08/13/17 18:51 111 16 97 Room Air 08/13/17 16:16 Room Air 08/13/17 15:38 36.9 112 18 121/66 (84) 100 Room Air 08/13/17 15:21 116 16 92 Room Air Physical Exam General Appearance: no apparent distress, + pertinent finding (nontoxic, looks well) ENT: pharynx normal Neck: no JVD Respiratory/Chest: lungs clear, no respiratory distress, no accessory muscle use, + decreased breath sounds (bases) Cardiovascular: regular rate, rhythm, no gallop, no murmur Abdomen: normal bowel sounds, non tender, soft, no organomegaly Extremities: no pedal edema Neurologic/Psychiatric: alert, oriented x 3 Skin: + pertinent finding (right volar aspect forearm - negative PPD (no induration noted; minimal erythema only)) Laboratory Results Last 24 Hours Test 08/13/17 17:47 08/14/17 07:25 08/14/17 13:26 Vancomycin Level Trough 19.5 mcg/ml White Blood Count 10.55 K/uL Red Blood Count 4.44 M/uL Hemoglobin 12.0 g/dL Hematocrit 36.2 % Mean Corpuscular Volume 81.5 fL Mean Corpuscular Hemoglobin 27.0 pg Mean Corpuscular Hemoglobin Concent 33.1 g/dl RDW Standard Deviation 40.4 fL RDW Coefficient of Variation 13.4 % Platelet Count 336 K/uL Mean Platelet Volume 8.9 fL Sodium Level 141 mmol/L Potassium Level 3.4 mmol/L Chloride Level 106 mmol/L Carbon Dioxide Level 28 mmol/L Anion Gap 8.0 mmol/L Blood Urea Nitrogen 9 mg/dl Creatinine 0.80 mg/dl Est Creatinine Clear Calc Drug Dose 177.4 ml/min Estimated GFR () 148.0 Estimated GFR (Non- 127.7 BUN/Creatinine Ratio 11.3 Random Glucose 110 mg/dl Calcium Level 9.3 mg/dl Magnesium Level 2.0 mg/dl Assessment and Plan 22yo male - 1. sepsis 2nd to b/l pneumonia - continues on IV zosyn and vancomycin. Clinically stable/improved. Appreciate pulmonary consultation. We have seen several cases of b/l pneumonia 2nd to mycoplasma recently that have looked like this (no cavitary lesions, of course) - will send mycoplasma titer to be complete. urine legionella pending. blood cx's negative. repeat cxr and sed rate in AM. add incentive spirometry. 2. h/o asthma - remains on steroids. He does not have any significant wheezing today but could have bronchospasm none -the-less and thus continue the duonebs. Will change this to combivent q6h. 3. hypokalemia - replace, repeat level in am. 4. DVT proph - likely will not have bronch given his stability & improvement. thus, add lovenox 40mg daily. 5. high risk of TB given his [place] - quantiferon gold test is pending. PPD appears negative at 48 hours however. Continued [facility] stay due to: multiple IV medications needed Discharge planning: home
[2017-08-14] MEDS ORDERED: ENOXAPARIN 40 MG/0.4 ML SYR SQ ONE (13:45)
[2017-08-14 15:35] VITALS: BP 132/71; PULSE 94; TEMP 36.6; O2SAT 91
[2017-08-14] MEDS: IPRATROPIUM BROMIDE/ALBUTEROL respimat INH INH SCH (16:00)
[2017-08-14] MEDS ORDERED: PPD CHECK ONE (21:00)
[2017-08-15] MEDS: PIPERACILL/TAZOBAC IV 4.5 GM in DEXTROSE 5% 100ML 100 ML IV SCH ×4 (00:14→23:50)
[2017-08-15 00:15] VITALS: BP 116/73; PULSE 70; TEMP 36.7; O2SAT 98
[2017-08-15] MEDS: IPRATROPIUM BROMIDE/ALBUTEROL respimat INH INH SCH ×5 (00:42→20:00)
[2017-08-15] MEDS: VANCOMYCIN INJ 1,500 MG in SODIUM CHLORIDE 0.9% 500ML 500 ML IV SCH ×3 (02:46→18:11)
[2017-08-15 05:53] LABS: MEAN CELL VOLUME 82.6 fL (80-100); MEAN CORPUSCULAR HEMOGLOBIN 26.8 pg (25-34); MEAN CORPUSCULAR HGB CONC 32.4 g/dl (32-36); PLATELET COUNT 385 K/uL (130-400); RED BLOOD COUNT 4.48 M/uL (4.7-6.1); WHITE BLOOD COUNT 9.73 K/uL (4.8-10.8)
[2017-08-15 06:29] LABS: BUN/CREATININE RATIO 10.8 (10-20); CALCIUM 9.4 mg/dl (8.5-10.1); CREATININE 1.01 mg/dl (0.60-1.40); POTASSIUM 4.3 mmol/L (3.5-5.1)
[2017-08-15 07:16] VITALS: BP 110/73; PULSE 65; TEMP 36.6; O2SAT 97
[2017-08-15] MEDS ORDERED: ENOXAPARIN 40 MG/0.4 ML SYR SQ SCH (08:00)
--- NOTE | 2017-08-15 09:24 | DIAGNOSTIC IMAGING REPORT ---
CHEST 2 VIEWS ROUTINE CLINICAL HISTORY: pneumonia COMPARISON STUDY: CT scan dated 08/12/2017 FINDINGS: The heart is normal in size. There is no failure. There are left lower lobe airspace opacity suspicious for pneumonia. Minimal airspace opacities within the lingula are also suspected. A small left pleural effusion is identified.[ IMPRESSION: 1. Lingular and left lower lobe airspace opacities suspicious for pneumonia 2. Small left pleural effusion Electronically signed by: Mario Anderson M.D. 08/15/2017 9:23 AM Dictated Date/Time: 08/15/2017 9:21 AM
[2017-08-15] MEDS ORDERED: NURSING VERBAL MED ORDER ONE ×2 (12:15→13:30)
[2017-08-15] MEDS ORDERED: SODIUM CHLORIDE 0.9% 1000ML 1,000 ML IV SCH (12:24)
--- NOTE | 2017-08-15 12:50 | PROGRESS NOTE ---
DATE: 08/15/2017 The patient's evaluation today included: Conversation with the patient, physical exam, chart review, lab review, review of studies, and review of inpatient medication list. SUBJECTIVE: The patient is still complaining of left-sided pleuritic discomfort even though was started on steroid therapy. Minimal sputum production following his nebulizer treatments and the use of incentive spirometry. No hemoptysis. He is afebrile. Denies rigors or chills. There is no history of IV drug abuse or high risk behavior according to the patient. He has not been active as he has been secluded in respiratory isolation. CURRENT PHYSICAL EXAMINATION: GENERAL: Well-developed and well-nourished [place] male in no obvious distress at rest. CURRENT VITAL SIGNS: Temperature 36.9, pulse 87 and regular, respiratory rate 16, and O2 sat 97% on room air. SKIN: Warm and dry. HEENT: Atraumatic and normocephalic, PERRLA, EOMI. Conjunctivae pink. Sclerae nonicteric. Fundi benign. LUNGS: Decreased breath sounds with scattered wheezes on forced expiration, especially left base and left axillary region. No pleural rub. CARDIAC: Regular rate and rhythm. No murmurs or gallops. ABDOMEN: Soft and scaphoid. No evidence of hepatosplenomegaly. EXTREMITIES: No pedal edema, clubbing or cyanosis. NEUROLOGIC: Intact. PPD apparently in 48 hours shows no induration and minimal erythema. LABORATORY DATA: Chest x-ray reviewed today and compared to 3 days ago when he underwent CAT scan of the chest. It remains lingula and left lower lobe airspace opacity. Difficult to compare. Small left pleural effusion is identified. No obvious cavitation. Blood cultures are negative. Sputum pending. QuantiFERON Gold study is still pending. Urine for legionella and mycoplasma IgG and IgM are pending. Potassium level is normal. White count is 9700, H&H 12 and 37. Sed rate is 60. 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 The patient is making minimal progress and at this point in time, I would like to consider bronchoscopic intervention with bronchoalveolar lavage tomorrow that may help us to identify an organism or at least promote improvement in the patient's pulmonary toilet. The patient is amenable to proceeding. I did speak with his brother, who is a businessman in the [facility] area and unexplained the reasons for undergoing bronchoscopic evaluation as well as current therapy and we will schedule him tomorrow to undergo the procedure. His Lovenox will be held as well.
[2017-08-15 15:44] VITALS: BP 111/72; PULSE 77; TEMP 36.8; O2SAT 96
[2017-08-15] MEDS ORDERED: VANCOMYCIN TROUGH ONE (17:30)
--- NOTE | 2017-08-15 20:38 | Progress Note ---
Subjective Date of Service: Aug 15, 2017. Subjective Pt evaluation today including: conversation w/ patient, physical exam, chart review, lab review, review of studies (cxr), review of inpatient medication list Pain: none PO Intake: normal; eating 100% of meals Voiding: no voiding problems no issues overnight mild cough, minimally productive denies any new complaints asks multiple questions about bronch has h/o +PPD PPD site examined by myself - I believe it is positive with mild induration present Problem List Medical Problems: (1) Cavitary pneumonia Status: Acute (2) Chest pain Status: Acute Review of Systems Constitutional: No fever, No chills, No fatigue Respiratory: + cough, No sputum, No wheezing, No dyspnea at rest, No hemoptysis Cardiac: No chest pain Abdomen: No pain Objective Vital Signs Date Time Temp Pulse Resp B/P (MAP) Pulse Ox O2 Delivery O2 Flow Rate FiO2 08/15/17 16:03 Room Air 08/15/17 15:44 36.8 77 20 111/72 (85) 96 Room Air 08/15/17 09:08 Room Air 08/15/17 07:16 36.6 65 16 110/73 (85) 97 Room Air 08/15/17 00:15 36.7 70 18 116/73 (87) 98 Room Air 08/15/17 00:15 98 Room Air Physical Exam General Appearance: no apparent distress, + pertinent finding (looks well, nontoxic) ENT: pharynx normal Neck: no JVD Respiratory/Chest: no respiratory distress, no accessory muscle use, + decreased breath sounds (left base) Cardiovascular: regular rate, rhythm, no gallop, no murmur Abdomen: normal bowel sounds, non tender, soft, no organomegaly Extremities: no pedal edema Neurologic/Psychiatric: alert, oriented x 3 Laboratory Results Last 24 Hours Test 08/15/17 05:38 08/15/17 17:33 White Blood Count 9.73 K/uL Red Blood Count 4.48 M/uL Hemoglobin 12.0 g/dL Hematocrit 37.0 % Mean Corpuscular Volume 82.6 fL Mean Corpuscular Hemoglobin 26.8 pg Mean Corpuscular Hemoglobin Concent 32.4 g/dl RDW Standard Deviation 41.0 fL RDW Coefficient of Variation 13.5 % Platelet Count 385 K/uL Mean Platelet Volume 9.0 fL Erythrocyte Sedimentation Rate 60 mm/hr Sodium Level 141 mmol/L Potassium Level 4.3 mmol/L Chloride Level 106 mmol/L Carbon Dioxide Level 27 mmol/L Anion Gap 8.0 mmol/L Blood Urea Nitrogen 11 mg/dl Creatinine 1.01 mg/dl Est Creatinine Clear Calc Drug Dose 140.6 ml/min Estimated GFR () 122.7 Estimated GFR (Non- 105.8 BUN/Creatinine Ratio 10.8 Random Glucose 88 mg/dl Calcium Level 9.4 mg/dl Vancomycin Level Trough 16.1 mcg/ml Assessment and Plan 22yo male - 1. sepsis 2nd to b/l pneumonia - continues on IV zosyn and vancomycin. Clinically the sepsis is resolved. Appreciate pulmonary consultation. urine legionella pending. mycoplasma pending. blood cx's negative. repeat cxr stable/unchanged; sed rate modestly improved. cont incentive spirometry. may have bronch tomorrow by Dr. Nicholson for diagnostic/therapeutic purposes. 2. h/o asthma - remains on steroids. In light of minimal wheeze will lower prednisone to 30mg daily. 3. hypokalemia - resolved. 4. DVT proph - lovenox 40mg daily; holding for bronch, however. 5. high risk of TB given [place] - quantiferon gold test is pending. For Bronch tomorrow. Continued [facility] stay due to: multiple IV medications needed Discharge planning: home
[2017-08-15 23:52] VITALS: BP 121/71; PULSE 54; TEMP 36.5; O2SAT 97
[2017-08-16] VITALS (18 sets, daily range): BP systolic 104–141; BP diastolic 60–99; PULSE 58–133; TEMP 36.5–36.9; O2SAT 94–100
[2017-08-16] MEDS: VANCOMYCIN INJ 1,500 MG in SODIUM CHLORIDE 0.9% 500ML 500 ML IV SCH ×3 (01:53→18:13)
[2017-08-16] MEDS ORDERED: SODIUM CHLORIDE 0.9% 1000ML 1,000 ML IV SCH (07:00)
[2017-08-16 07:03] LABS: HEMATOCRIT 36.3 % (42-52); MEAN CELL VOLUME 81.9 fL (80-100); MEAN CORPUSCULAR HEMOGLOBIN 26.4 pg (25-34); MEAN CORPUSCULAR HGB CONC 32.2 g/dl (32-36); MEAN PLATELET VOLUME 8.6 fL (7.4-10.4); PLATELET COUNT 374 K/uL (130-400); RED BLOOD COUNT 4.43 M/uL (4.7-6.1); WHITE BLOOD COUNT 8.43 K/uL (4.8-10.8)
[2017-08-16 07:31] LABS: BUN/CREATININE RATIO 12.5 (10-20); CALCIUM 9.3 mg/dl (8.5-10.1); CREATININE 1.02 mg/dl (0.60-1.40); POTASSIUM 3.8 mmol/L (3.5-5.1)
[2017-08-16] MEDS: PIPERACILL/TAZOBAC IV 4.5 GM in DEXTROSE 5% 100ML 100 ML IV SCH ×2 (07:58→15:26)
[2017-08-16] MEDS: IPRATROPIUM BROMIDE/ALBUTEROL respimat INH INH SCH ×4 (07:59→19:45)
--- NOTE | 2017-08-16 10:31 | Pulmonology Progress Note ---
Pulmonary Progress Note Date of Service Aug 16, 2017. Attending Dr. Sanabria Subjective Patient seen and examined at bedside. Chest pain has improved since admission but still present. Controlled with pain medication. He denies any shortness of breath or cough. He is currently nothing by mouth for bronchoscopy. Objective Vital signs reviewed. MAXIMUM TEMPERATURE 36.5, blood pressure 104/60, pulse 67 , respiratory rate 20, saturating 98% on room air. Gen.: Awake alert oriented 3 no acute respiratory distress CVS: S1-S2 regular rate and rhythm no rubs murmurs or gallops appreciated Lungs: Clear to auscultation bilaterally Abdomen: Soft, nontender, nondistended, bowel sounds positive Extremities: No edema bilaterally in lower extremities, no cyanosis or clubbing noted Labs reviewed. WBC 8.43, hemoglobin 11.7, hematocrit 36.3, platelet count 374 Chemistries today is within normal limits creatinine mildly elevated from previous from 0.8 to the 1.02. ESR 60. Blood cultures from 08/12/2017-no growth to date MRSA swab negative from 08/13/2017 Sputum from 08/14/2017- shows moderate normal nila Urinary Legionella antigen-pending mycoplasma antibody-pending QuantiFERON Gold-pending Current medications from a respiratory standpoint: Prednisone 30 mg by mouth daily, albuterol/ipratropium 4 times a day inhaler, vancomycin 1.5 mg every 8 hours IV, Zosyn 4.5 g every 8 hours IV, ketorolac every 6 hours when necessary IV. Imaging reviewed and reviewed by me. Chest x-ray from 08/15/2017 shows a small left pleural effusion with opacification of the lingula and left lower lobes. CT chest from 08/12/2017 shows large cavitary masslike consolidation in the left lower lobe approximately 4.6 x 3.6 cm with multifocal airspace opacities in the bilateral lower lobes, lingula and right middle lobe. A small left pleural effusion also noted. Assessment & Plan IMPRESSION Bilateral pneumonia. Pleurisy. COMMENTS AND RECOMMENDATIONS: Patient is currently nothing by mouth for bronchoscopy this morning. Consent placed in chart. Continue with vancomycin and Zosyn IV, continue with prednisone taper and bronchodilators when necessary. Continue with ketorolac for pleuritic chest pain when necessary. Data Medications: Current Inpatient Medications Medications (Trade) Dose Ordered Sig/Concepcion Route Start Time Stop Time Status Last Admin Dose Admin Ioversol (Optiray 320) 111 ml UD PRN IV 08/12/17 17:45 08/16/17 17:44 Acetaminophen (Tylenol Tab) 650 mg Q4H PRN PO 08/12/17 18:30 09/11/17 18:29 Polyethylene (Miralax Powder Packet) 17 gm DAILY PRN PO 08/12/17 18:30 09/11/17 18:29 Ondansetron HCl (Zofran Inj) 4 mg Q6H PRN IV 08/12/17 18:30 09/11/17 18:29 Piperacillin Sod/ Tazobactam Sod 4.5 gm/Dextrose 120 ml @ 30 mls/hr Q8H IV 08/13/17 00:00 08/20/17 00:00 08/16/17 07:58 30 MLS/HR Ketorolac Tromethamine (Toradol Inj) 30 mg Q6H PRN IV 08/12/17 19:00 08/17/17 18:59 Vancomycin HCl (Consult) 1 ea UD PRN N/A 08/12/17 20:45 09/11/17 20:44 Piperacillin Sod/ Tazobactam Sod (Consult) 1 ea UD PRN N/A 08/12/17 20:45 09/11/17 20:44 Vancomycin HCl 1500 mg/Sodium Chloride 530 ml @ 200 mls/hr Q8H IV 08/14/17 02:00 08/20/17 01:59 08/16/17 10:02 200 MLS/HR Albuterol/ Ipratropium (Combivent Respimat Inh) 1 puffs QIDR INH 08/14/17 16:00 09/13/17 15:59 08/16/17 07:59 1 PUFFS Sodium Chloride 1,000 ml @ 15 mls/hr Q24H IV 08/16/17 07:00 08/17/17 06:59 08/16/17 06:06 15 MLS/HR Prednisone (PredniSONE TAB) 30 mg DAILY PO 08/16/17 08:00 09/13/17 07:59 Vital Signs: Date Time Temp Pulse Resp B/P (MAP) Pulse Ox O2 Delivery O2 Flow Rate FiO2 08/16/17 07:17 36.5 67 20 104/60 (75) 98 Room Air 08/15/17 23:55 Room Air 08/15/17 23:52 36.5 54 18 121/71 (88) 97 Room Air 08/15/17 16:03 Room Air 08/15/17 15:44 36.8 77 20 111/72 (85) 96 Room Air Laboratory Results: Last 24 Hours Test 08/15/17 17:33 08/16/17 06:46 Vancomycin Level Trough 16.1 mcg/ml White Blood Count 8.43 K/uL Red Blood Count 4.43 M/uL Hemoglobin 11.7 g/dL Hematocrit 36.3 % Mean Corpuscular Volume 81.9 fL Mean Corpuscular Hemoglobin 26.4 pg Mean Corpuscular Hemoglobin Concent 32.2 g/dl RDW Standard Deviation 40.4 fL RDW Coefficient of Variation 13.4 % Platelet Count 374 K/uL Mean Platelet Volume 8.6 fL Sodium Level 139 mmol/L Potassium Level 3.8 mmol/L Chloride Level 104 mmol/L Carbon Dioxide Level 29 mmol/L Anion Gap 6.0 mmol/L Blood Urea Nitrogen 13 mg/dl Creatinine 1.02 mg/dl Est Creatinine Clear Calc Drug Dose 139.2 ml/min Estimated GFR () 121.2 Estimated GFR (Non- 104.6 BUN/Creatinine Ratio 12.5 Random Glucose 84 mg/dl Calcium Level 9.3 mg/dl
[2017-08-16 10:32] LABS: LEGIONELLA ANTIGEN NOT DETECTED (NOT DETECTED)
--- NOTE | 2017-08-16 10:51 | Procedure Note ---
Pre-Mod Sedation Assessment General Date of Moderate Sedation: Aug 16, 2017. Vital Signs: Vital Signs Past 12 Hours Date Time Temp Pulse Resp B/P (MAP) Pulse Ox O2 Delivery O2 Flow Rate FiO2 08/16/17 07:17 36.5 67 20 104/60 (75) 98 Room Air 08/15/17 23:55 Room Air 08/15/17 23:52 36.5 54 18 121/71 (88) 97 Room Air Review Cardiovascular: regular rate, rhythm, no edema, no gallop, no JVD, no murmur, normal peripheral pulses Abdomen: normal bowel sounds, non tender, soft, no organomegaly, no pulsatile mass Lungs: chest non-tender, lungs clear, normal breath sounds, no respiratory distress, no accessory muscle use Airway Class: II Pre-Sedation Airway Assessment Oral Cavity: WNL Able to Visualize Vocal Cords: Yes Short Thick Neck: No Hx of Sleep Apnea: No Smoking Status: Current Some Day Smoker Mallampati Classification: Class II ASA Classification: Class II Notes The planned sedation has been discussed with the patient and consent obtained. I have identified the patient, determined the appropriateness of sedation and have assessed the patient immediately prior to the procedure. All medicine(s) and interventions are by my order.
[2017-08-16 11:50] LABS: QUANTIF TB AG-NIL 0.02 IU/ML; QUANTIFERON NIL 0.13 IU/ML
[2017-08-16] MEDS ORDERED: NURSING VERBAL MED ORDER ONE (14:00)
[2017-08-16] MEDS ORDERED: FENTANYL CITRATE INJ 50 MCG/1 ML 2 ML VIAL IV ONE (14:30)
[2017-08-16] MEDS ORDERED: MIDAZOLAM HCL 5 MG/ML 1 ML VIAL IV ONE (14:30)
--- NOTE | 2017-08-16 14:49 | Procedure Note ---
Procedure Note Date of Service Aug 16, 2017. Procedure Note Procedure: Bronchoscopy, conscious sedation Consent: Obtained through the patient placed into the chart Pre-procedural diagnosis: Multilobar pneumonia Post-procedural diagnosis: Multilobar pneumonia Start time: 13:47 End time: 13:58 Total time: 11 minutes Analgesia: 2% liquid lidocaine: Via nebulizer 4% gel lidocaine: Via right naris 2% liquid lidocaine: Via bronchoscopy Sedation: Versed IV: 3 mg Fentanyl IV: 75 g Procedure: The [employer] video bronchoscope was used for this procedure and passed down through the right naris right naris/posterior naris/posterior oropharynx: Anatomically within normal limits Glottis: Anatomically within normal limits Vocal cords: Proper abduction and abduction, anatomically within normal limits Subglottis/trachea/Olya: Anatomically within normal limits Right bronchial tree: Right mainstem bronchus: Anatomically within normal limits Right upper lobe: Anatomically within normal limits Bronchus intermedius: Anatomically within normal limits Right middle lobe: Anatomically within normal limits Right lower lobe: Anatomically within normal limits Findings: No significant findings noted Left bronchial tree: Left mainstem bronchus: Anatomically within normal limits Left upper lobe: Anatomically within normal limits Lingula: Anatomically within normal limits Left lower lobe: Mildly erythematous at the orifice of the superior segment. Otherwise, anatomically within normal limits. Findings: No significant findings noted Bronchial alveolar lavage: LLL EBL: < 5 ml Complications: None
--- NOTE | 2017-08-16 17:56 | Progress Note ---
Subjective Date of Service: Aug 16, 2017. Subjective Pt evaluation today including: conversation w/ patient, physical exam, chart review, lab review, review of studies (bronch), conversation w/ medical economics consultant ( pulmonary), review of inpatient medication list Pain: minimal, pleuritic - on left PO Intake: npo for bronch Voiding: no voiding problems I saw the patient before he had his bronch - was resting comfortably denied any significant cough, congestion, dyspnea, abd pain, or diarrhea previously eating well Problem List Medical Problems: (1) Cavitary pneumonia Status: Acute (2) Chest pain Status: Acute Review of Systems Constitutional: No fever, No chills Respiratory: No wheezing, No shortness of breath, No dyspnea on exertion Cardiac: No orthopnea, No PND Abdomen: No pain Objective Vital Signs Date Time Temp Pulse Resp B/P (MAP) Pulse Ox O2 Delivery O2 Flow Rate FiO2 08/16/17 17:00 97 Room Air 08/16/17 16:50 36.5 82 20 128/72 (90) 97 Room Air 08/16/17 16:20 36.7 81 20 116/71 (86) 98 Room Air 08/16/17 15:50 36.6 83 20 130/73 (92) 95 Room Air 08/16/17 15:20 36.8 70 20 118/70 (86) 97 Room Air 08/16/17 15:18 Mask 08/16/17 14:53 36.6 76 20 106/66 (79) 98 2.0 08/16/17 14:20 86 16 129/86 96 Nasal Cannula 2.0 08/16/17 14:15 90 16 125/86 95 Nasal Cannula 2.0 08/16/17 14:10 90 16 122/88 95 Nasal Cannula 2.0 08/16/17 14:05 94 16 135/96 97 Nasal Cannula 4.0 08/16/17 14:02 104 16 116/96 98 Mask 6.0 08/16/17 13:57 127 16 141/99 98 Mask 6.0 08/16/17 13:52 133 16 137/89 99 Mask 6.0 08/16/17 13:06 58 21 119/68 100 Mask 6.0 08/16/17 12:11 36.5 67 20 104/60 98 Room Air 08/16/17 10:17 Room Air 10/23/17 07:17 36.5 67 20 104/60 (75) 98 Room Air 08/15/17 23:55 Room Air 08/15/17 23:52 36.5 54 18 121/71 (88) 97 Room Air Physical Exam General Appearance: no apparent distress ENT: pharynx normal Neck: no JVD Respiratory/Chest: lungs clear, no respiratory distress, no accessory muscle use, + decreased breath sounds (left base only) Cardiovascular: regular rate, rhythm, no gallop, no murmur Abdomen: normal bowel sounds, non tender, soft, no organomegaly Extremities: no pedal edema Neurologic/Psychiatric: alert, oriented x 3 Laboratory Results Last 24 Hours Test 08/16/17 06:46 08/16/17 14:00 White Blood Count 8.43 K/uL Red Blood Count 4.43 M/uL Hemoglobin 11.7 g/dL Hematocrit 36.3 % Mean Corpuscular Volume 81.9 fL Mean Corpuscular Hemoglobin 26.4 pg Mean Corpuscular Hemoglobin Concent 32.2 g/dl RDW Standard Deviation 40.4 fL RDW Coefficient of Variation 13.4 % Platelet Count 374 K/uL Mean Platelet Volume 8.6 fL Sodium Level 139 mmol/L Potassium Level 3.8 mmol/L Chloride Level 104 mmol/L Carbon Dioxide Level 29 mmol/L Anion Gap 6.0 mmol/L Blood Urea Nitrogen 13 mg/dl Creatinine 1.02 mg/dl Est Creatinine Clear Calc Drug Dose 139.2 ml/min Estimated GFR () 121.2 Estimated GFR (Non- 104.6 BUN/Creatinine Ratio 12.5 Random Glucose 84 mg/dl Calcium Level 9.3 mg/dl Assessment and Plan 22yo male - 1. sepsis 2nd to b/l pneumonia - sepsis resolved. Pneumonia resolving. Patient quite stable and looks good. continues on IV zosyn and vancomycin - day #5 of each. Appreciate pulmonary consultation. urine legionella negative. mycoplasma pending. blood cx's negative. repeat cxr stable/unchanged; sed rate modestly improved. cont incentive spirometry. s/p bronch today by Dr. Sanabria -- bronch largely normal. 2. h/o asthma - remains on steroids but tapering to 30mg today. Taper over another 4-5 days then stop. 3. hypokalemia - resolved. 4. DVT proph - lovenox 40mg daily; holding for bronch, however. 5. high risk of TB given his [place] - quantiferon gold test negative. If AFB from bronch is negative can d/c precautions. suspect d/c tomorrow Continued [facility] stay due to: multiple IV medications needed Discharge planning: home
[2017-08-17] MEDS: PIPERACILL/TAZOBAC IV 4.5 GM in DEXTROSE 5% 100ML 100 ML IV SCH ×2 (00:12→08:39)
[2017-08-17] MEDS: VANCOMYCIN INJ 1,500 MG in SODIUM CHLORIDE 0.9% 500ML 500 ML IV SCH ×2 (02:02→10:16)
[2017-08-17] MEDS ORDERED: MIDAZOLAM HCL 5 MG/ML 1 ML VIAL IV ONE (07:14)
[2017-08-17] MEDS ORDERED: FENTANYL CITRATE INJ 50 MCG/1 ML 2 ML VIAL IV ONE (07:14)
[2017-08-17] MEDS ORDERED: LIDOCAINE 4% INH SOLN 4 ML BTL ONE (07:14)
[2017-08-17] MEDS ORDERED: LIDOCAINE HCL 2% LOCAL 50ML VIAL INFIL ONE (07:14)
[2017-08-17 07:34] VITALS: BP 127/67; PULSE 52; TEMP 36.6; O2SAT 96
[2017-08-17] MEDS: IPRATROPIUM BROMIDE/ALBUTEROL respimat INH INH SCH ×2 (08:38→13:09)
[2017-08-17 12:04] VITALS: BP 127/67; PULSE 52; TEMP 36.6; O2SAT 96
[2017-08-17] MEDS ORDERED: LEVO1TAB35 PO ×2 (12:11)
[2017-08-17] MEDS ORDERED: LACTCHW3 PO ×2 (12:11)
[2017-08-17] MEDS ORDERED: PRD10 PO ×2 (12:11)
[2017-08-17] MEDS ORDERED: IPRA1AER2 INH ×2 (12:11)
--- NOTE | 2017-08-17 12:21 | Discharge Instructions ---
Discharge Instructions Date of Service Aug 17, 2017. Admission Reason for Admission: PNEUMONIA Discharge Discharge Diagnosis / Problem: Pneumonia - much improved Discharge Goals Goal(s): Improve disease control, Learn about illness, Diagnostic testing, Therapeutic intervention Activity Recommendations Activity Limitations: as noted below For the next week please avoid heavy exertional activities including going to the gym, going for a run or bike ride, heavy lifting over 20 pounds, heavy indoor or outdoor chores (yardwork, etc). OK TO TAKE LIGHT WALKS. . Instructions / Follow-Up Instructions / Follow-Up From Dr. Pisano: 1. For your pneumonia please take the following - * levaquin (levofloxacin) 750mg once daily for 4 more days. Start this TOMORROW on 08/18/17. * lactinex 3 tablets 3 times a day for 5 days. Start this TODAY. These are probiotics which often help prevent diarrhea from the levofloxacin. 2. For your asthma flare up please take the following - * combivent inhaler 1 puff up to 4 times a day as needed for cough or wheezing or shortness of breath * prednisone taper for 4 more days starting TOMORROW on 08/18/17 3. Return to [facility] if - * you experience fever over 100.5 degrees * you develop worsening chest pain or difficulty breathing * you develop severe diarrhea * any other concerns 4. Follow-up appointments - * see [facility] on the [facility] THIS WEEK * see [facility] Pulmonary within 1-2 weeks Current Hospital Diet Patient's current hospital diet: Regular Diet Discharge Diet Recommended Diet: Regular Diet Procedures Procedures Performed: CAT scan of the lungs showing bilateral pneumonia, worse on the left. Bronchoscopy of the lungs - largely normal. Pending Studies Studies pending at discharge: yes List of pending studies: Mycoplasma titers School Instructions Additional Instructions: Logan was hospitalized at [facility] from 08/12/17 to 08/16/17. Please excuse him from classes. He may return to classes on , 08/19/17. Medical Emergencies . Who to Call and When: Medical Emergencies: If at any time you feel your situation is an emergency, please call 911 immediately. . Non-Emergent Contact Non-Emergency issues call your: Primary Care Provider Call Non-Emergent contact if: temperature is above 100.5, your pain is not controlled, your pain is worsening, your pain is unusual for you, your pain is concerning you, you have any medication questions . . "Provider Documentation" section prepared by Andrew Pisano. . VTE Core Measure Inpt VTE Proph given/why not?: Enoxaparin (Lovenox)SQ
--- NOTE | 2017-08-17 17:17 | Pulmonology Progress Note ---
Pulmonary Progress Note Date of Service Aug 17, 2017. Attending Dr. Sanabria Subjective Patient seen and examined prior to discharge. He states that he is much better and ready to go home. Still complaining of intermittent pleuritic chest pain with deep inspiration. Denies any dyspnea on exertion or at rest. Objective Vital signs reviewed. Gen.: Awake alert oriented 3 no acute respiratory distress CVS: S1-S2 regular rate and rhythm no rubs murmurs or gallops appreciated Lungs: Clear to auscultation bilaterally Abdomen: Soft, nontender, nondistended, bowel sounds positive Extremities: No edema bilaterally in lower extremities, no cyanosis or clubbing noted Labs reviewed. Blood cultures from 08/12/2017-no growth to date MRSA swab negative from 08/13/2017 Sputum from 08/14/2017- shows moderate normal nila Urinary Legionella not detected mycoplasma antibody-pending QuantiFERON negative Bronchial washings from 08/16/2017 for bacterial cultures showed no growth, mycobacterial culture pending and fungal culture pending. Current medications from a respiratory standpoint: Prednisone 30 mg by mouth daily, albuterol/ipratropium 4 times a day inhaler, vancomycin 1.5 mg every 8 hours IV, Zosyn 4.5 g every 8 hours IV, ketorolac every 6 hours when necessary IV. Imaging reviewed and reviewed by me. Chest x-ray from 08/15/2017 shows a small left pleural effusion with opacification of the lingula and left lower lobes. CT chest from 08/12/2017 shows large cavitary masslike consolidation in the left lower lobe approximately 4.6 x 3.6 cm with multifocal airspace opacities in the bilateral lower lobes, lingula and right middle lobe. A small left pleural effusion also noted. Assessment & Plan IMPRESSION Bilateral pneumonia. Pleurisy. COMMENTS AND RECOMMENDATIONS: Discussed with Dr. Rodríguez that patient is stable for discharge from a respiratory standpoint. He should continue with antibiotics to complete a 7-10 day course. Interval follow-up to repeat imaging in about 6 weeks for resolution of pneumonia is recommended. Data Vital Signs: Date Time Temp Pulse Resp B/P (MAP) Pulse Ox O2 Delivery O2 Flow Rate FiO2 08/17/17 12:04 36.6 52 20 96 Room Air Nasal Cannula 08/17/17 11:02 Room Air 08/17/17 07:34 36.6 52 20 127/67 (87) 96 Room Air 08/17/17 00:00 Room Air 08/16/17 23:31 36.8 80 16 118/78 (91) 96 Room Air 08/16/17 19:52 36.9 81 18 131/81 (98) 94 Room Air
--- NOTE | 2017-08-18 12:50 | Discharge Summary ---
Discharge Summary Date of Service Aug 18, 2017. Discharge Summary Admission Date: Aug 12, 2017 at 18:31 Discharge Date: Aug 17, 2017 Discharge Disposition: Home Principal Diagnosis: bilateral community-acquired pneumonia Problems/Secondary Diagnoses: sepsis 2nd to pneumonia asthma with exacerbation hypokalemia - resolved Procedures: 1. CTA Chest: IMPRESSION: 1. No central or lobar pulmonary emboli identified. Segmental and subsegmental pulmonary arteries suboptimally assessed due to respiratory motion. 2. Multifocal airspace opacities within the bilateral lower lobes, lingula and right middle lobe, including a 4.6 x 3.6 cm focus of consolidation within the left lower lobe with possible early cavitation. The findings suggest multifocal pneumonia. Tuberculosis or a vasculitis are considered unlikely but would be difficult to exclude based on this study. 3. Small left pleural effusion. 2. Bronchoscopy - Jenna Sanarbia MD Consultations: pulmonary - Satya Nicholson MD Medication Reconciliation New Medications: Lactobacillus (Lactinex) Chw 3 TAB PO TID for 5 Days, #45 CHW 0 Refills Levofloxacin (Levaquin) 750 Mg Tab 750 MG PO DAILY for 4 Days, #4 TAB 0 Refills start 08/18/17 Ipratropium-Albuterol (Combivent Respimat) 1 Aer Aer 1 PUFFS INH Q6H PRN for cough/wheezing, #1 INHALER 0 Refills Prednisone (Prednisone) 10 Mg Tab 10 MG PO DIRECTED, #6 TAB 0 Refills starting 08/18/17: take 2 tabs days 1 & 2, then 1 tab days 3 & 4, then stop. Discharge Exam Physical Exam: General Appearance: WD/WN, no apparent distress ENT: pharynx normal Neck: no JVD Respiratory/Chest: lungs clear, no respiratory distress, no accessory muscle use, + decreased breath sounds (left base - mild) Cardiovascular: regular rate, rhythm, no gallop, no murmur, normal peripheral pulses Abdomen / GI: normal bowel sounds, non tender, soft, no organomegaly Extremities: no pedal edema Neurologic/Psychiatric: alert, oriented x 3 Skin: no rash Hospital Course HISTORY OF PRESENT ILLNESS: This is a 22yo male [employer] [facility], originally from [place], with history of asthma and nasal polypectomy, who presented with pleuritic chest pain on the left side x 1 day. Pt awoke yesterday morning with acute left sided pleuritic pain and an occasional cough. He waited 1 day to see a doctor at [facility], but was then told to go to the ER. He denied fever, chills or sweats. Pt admitted to feeling short of breath if he was required to talk for an extended period of time. He reported feeling winded more easily with walking long distances compared to normal. Pt denied chest palpitations, flutter, or headache. He reports having had an upper respiratory infection for 3-4 days last week with nasal congestion, sinus drainage and cough but this had resolved around Wednesday. He denies any exposure to sick contacts or known tuberculosis. He denies environmental exposure to fumes or smoke. Denied HIV risk factors including multiple sexual partners or IV drug abuse. HOSPITAL COURSE: CT scan of the lungs at admission demonstrated bilateral pneumonia with a consolidated area in the left lung. This consolidated area also had a very small area of possible early cavitation. Due to having a higher risk of tuberculosis (country of origin was [place]) he was placed in respiratory isolation. The patient remained stable from a pulmonary standpoint throughout his entire stay. He did not require supplemental oxygen. Blood cultures, sputum culture, and bronch cultures to date were negative. Urine legionella antigen was negative; mycoplasma titers were pending at time of discharge. He was treated with broad-spectrum IV antibiotic therapy in the event he had a serious gram negative pneumonia or MRSA pneumonia. However, even despite the CT findings, the patient made rapid improvement, making it more likely that his pneumonia was community-acquired. To definitively rule out tuberculosis the patient underwent bronchoscopy by Dr. Jenna Sanabria. AFB smear from the bronch was negative. Quantiferon testing for tuberculosis was also negative. At discharge the following were recommended - * 4 more days of levaquin * prednisone taper for mild asthma exacerbation * use of combivent inhaler as needed * pulmonary follow-up in about 1 week to ensure ongoing clinical stability and improvement Total Time Spent: Less than 30 minutes This includes examination of the patient, discharge planning, medication reconciliation, and communication with other providers. Discharge Instructions Please refer to the electronic Patient Visit Report (Discharge Instructions) for additional information. Follow-Up 1. [facility] - WednesdayAugust 20 at 9:20 am 2. [facility] -Dr. Nicholson - WednesdayAug 25 at 3:45 pm Additional Copies To Satya Nicholson M.D.; [facility]
[2017-09-10 19:50] LABS: HERPES SIMPLEX CULT SOURCE OTHER-LLL; HERPES SIMPLEX VIRUS CULT NOT ISOLATED (NOT ISOLATED)
== END 2017-08-17 13:14 | disposition home or self-care (01) | DRG 853 ==
LOC: EDBD 17:01 → C.EDB 17:01 → UNDOADMIN 18:31 → C.4E 18:31 → EDBEDREQ 18:35 → ENRESERV 18:52
PROVIDERS: ADMIT Internal Medicine; ATTEND Internal Medicine
PROC: 0B9J8ZX Drainage of Left Lower Lung Lobe, Via Natural or Artificial Opening Endoscopic, Diagnostic (ICD-10-PCS; principal; 2017-08-16)
DX: A41.9 Sepsis, unspecified organism (principal); J18.8 Other pneumonia, unspecified organism; J45.909 Unspecified asthma, uncomplicated; E87.6 Hypokalemia

== ENCOUNTER → 2017-09-21 | Outpatient (CLI) | payer OTHER ==
[~2017-09-21] MED LIST: IPRA1AER2 INH; LACTCHW3 PO; LEVO1TAB35 PO; PRD10 PO
[2017-09-21 16:36] LABS: BASO % 0.3 %; BASO ABS # 0.02 K/uL (0-0.2); COMPLETE YES; EOS % 2.5 %; HEMATOCRIT 40.9 % (42-52); IG% 0.3 %; LYMPH % 39.7 %; LYMPH ABS # 2.51 K/uL (1.2-3.4); MEAN CELL VOLUME 83.6 fL (80-100); MEAN CORPUSCULAR HEMOGLOBIN 27.6 pg (25-34); MEAN PLATELET VOLUME 9.2 fL (7.4-10.4); MONO % 4.6 %; NEUT % 52.6 %; PLATELET COUNT 260 K/uL (130-400); RED BLOOD COUNT 4.89 M/uL (4.7-6.1); WHITE BLOOD COUNT 6.33 K/uL (4.8-10.8)
== END | disposition home or self-care (01) ==
LOC: C.LAB 15:51
PROVIDERS: ATTEND Internal Medicine Pulmonary Disease
DX: J18.0 Bronchopneumonia, unspecified organism (principal)

== ENCOUNTER → 2017-09-22 | Outpatient (CLI) | payer OTHER ==
--- NOTE | 2017-09-22 10:43 | DIAGNOSTIC IMAGING REPORT ---
CHEST 2 VIEWS ROUTINE HISTORY: Bronchopneumonia. Follow-up. COMPARISON: Chest 08/15/2017. Chest CT 08/12/2017. FINDINGS: Overall, improved aeration within the left lung base. The airspace opacities have essentially resolved in the interval. There is persistent tenting of the left hemidiaphragm which favors a small amount of loculated fluid within the left major fissure. This is also improved. No new focal lung consolidations. No pneumothorax. The heart is normal in size. The right lung is clear. IMPRESSION: Overall, improved aeration within the left lung base. Airspace opacities have essentially resolved. Persistent tenting of the left hemidiaphragm favors a small amount of loculated pleural fluid which is also improved. An additional one month chest x-ray follow-up is recommended to ensure complete resolution. Electronically signed by: Benitez Arroyo M.D. 09/22/2017 10:41 AM Dictated Date/Time: 09/22/2017 10:38 AM
== END | disposition home or self-care (01) ==
LOC: C.RAD1850 10:03
PROVIDERS: ATTEND Internal Medicine Pulmonary Disease
DX: J18.0 Bronchopneumonia, unspecified organism (principal)